=== PATIENT | female | born 1975 | race Asian ===

== ENCOUNTER → 2019-08-16 | Outpatient (CLI) | payer OTHER | END | disposition home or self-care (01) | LOC: MAMMO 13:56 → US 14:30 | DX: Z12.31 Encounter for screening mammogram for malignant neoplasm of breast (principal); N88.8 Other specified noninflammatory disorders of cervix uteri ==

== ENCOUNTER → 2020-03-04 | Outpatient (CLI) | payer OTHER | END | disposition home or self-care (01) | LOC: COVID19 10:12 | PROVIDERS: ATTEND Family Medicine | DX: U07.1 COVID-19 (principal) ==

== ENCOUNTER 2022-04-15 21:14 | Inpatient (IN) | payer OTHER ==
[~2022-04-15] VITALS: Ht 152 cm; Wt 77.1 kg
[2022-04-15 21:38] VITALS: BP 171/115
[2022-04-15] MEDS ORDERED: VITAMIN D310 MC1 PO (21:39)
[2022-04-15 22:27] LABS: BASO # 0.1 10*3/uL (0.0-0.1); BASO % 0.5 % (0.0-1.0); EOS # 0.5 10*3/uL (0.0-0.4); EOS % 5.3 % (1.0-4.0); HEMATOCRIT 45.9 % (37.0-47.0); LYMPH # 2.6 10*3/uL (1.3-4.4); LYMPH % 27.7 % (27.0-41.0); MEAN CELL VOLUME 90.9 fl (81.0-99.0); MEAN CORPUSCULAR HGB 30.5 pg (27.0-31.0); MEAN CORPUSCULAR HGB CONC 33.6 g/dl (33.0-37.0); MEAN PLATELET VOLUME 9.4 fl (9.6-12.3); MONO # 0.5 10*3/uL (0.1-1.0); MONO % 5.4 % (3.0-9.0); NEUT # 5.6 10*3/uL (2.3-7.9); NEUT % 60.8 % (47.0-73.0); PLATELET COUNT AUTOMATED 369 10*3/uL (130-400); RED BLOOD COUNT 5.05 10*6/uL (4.10-5.10); RED CELL DISTRI WIDTH 12.7 % (0-14.5); WHITE BLOOD COUNT 9.2 10*3/uL (4.8-10.8)
[2022-04-15 22:31] VITALS: BP 189/104
[2022-04-15 22:42] LABS: ACT PARTIAL THROMBO TIME 26.2 SECONDS (20.0-32.1)
[2022-04-15 22:47] VITALS: BP 151/82
[2022-04-15 22:50] LABS: ALKALINE PHOSPHATASE 55 U/L (46-116); BUN 10 mg/dl (9-23); CHLORIDE 101 mmol/L (98-107); POTASSIUM 3.2 mmol/L (3.4-5.1); SGPT/ALT 25 U/L (10-49); TOTAL PROTEIN 7.8 gm/dL (6.0-8.0)
[2022-04-15 23:04] VITALS: BP 170/92
[2022-04-15 23:29] VITALS: BP 166/60; BP 166/90
[2022-04-16] VITALS (11 sets, daily range): BP systolic 135–170; BP diastolic 71–110
[2022-04-16 06:37] LABS: ALKALINE PHOSPHATASE 53 U/L (46-116); BUN 9 mg/dl (9-23); CHLORIDE 103 mmol/L (98-107); POTASSIUM 3.9 mmol/L (3.4-5.1); SGPT/ALT 20 U/L (10-49); TOTAL PROTEIN 7.9 gm/dL (6.0-8.0)
[2022-04-17] VITALS: BP 140/76
[2022-04-17] MEDS ORDERED: PREDNISONE5 MG PO (06:07)
[2022-04-17] MEDS ORDERED: CEFUROXIME AXE250 MG PO (06:07)
[2022-04-17] MEDS ORDERED: NORMODYNE,TRAN100 MG PO (06:07)
[2022-04-17 07:10] LABS: BASO % 0.1 % (0.0-1.0); HEMATOCRIT 43.8 % (37.0-47.0); LYMPH # 1.3 10*3/uL (1.3-4.4); LYMPH % 7.9 % (27.0-41.0); MEAN CELL VOLUME 91.6 fl (81.0-99.0); MEAN CORPUSCULAR HGB 30.3 pg (27.0-31.0); MEAN CORPUSCULAR HGB CONC 33.1 g/dl (33.0-37.0); MEAN PLATELET VOLUME 9.5 fl (9.6-12.3); MONO # 0.3 10*3/uL (0.1-1.0); MONO % 1.6 % (3.0-9.0); NEUT # 14.5 10*3/uL (2.3-7.9); NEUT % 89.8 % (47.0-73.0); PLATELET COUNT AUTOMATED 383 10*3/uL (130-400); RED BLOOD COUNT 4.78 10*6/uL (4.10-5.10); WHITE BLOOD COUNT 16.1 10*3/uL (4.8-10.8)
[2022-04-17 08:00] VITALS: BP 135/72; BP 140/92
[2022-04-17 09:53] LABS: BUN 11 mg/dl (9-23); CHLORIDE 104 mmol/L (98-107); POTASSIUM 4.1 mmol/L (3.4-5.1)
[2022-04-17 12:00] VITALS: BP 142/80
== END 2022-04-17 13:25 | disposition home or self-care (01) | DRG 203 ==
LOC: ED 21:14 → EDHOLD 04-16 02:29 → 4E 04-16 02:36
PROVIDERS: Student in an Organized Health Care Education/Training Program; ADMIT Internal Medicine; ATTEND Internal Medicine
DX: J45.21 Mild intermittent asthma with (acute) exacerbation (principal); I16.0 Hypertensive urgency; J06.9 Acute upper respiratory infection, unspecified; E87.6 Hypokalemia; E66.9 Obesity, unspecified; T38.0X5A Adverse effect of glucocorticoids and synthetic analogues, initial encounter; J20.9 Acute bronchitis, unspecified; Z68.33 Body mass index [BMI] 33.0-33.9, adult; R73.9 Hyperglycemia, unspecified; Y92.89 Other specified places as the place of occurrence of the external cause

== ENCOUNTER 2023-07-06 07:12 | Emergency (ER) | payer OTHER ==
[~2023-07-06 07:12] MED LIST: CEFUROXIME AXE250 MG PO; NORMODYNE,TRAN100 MG PO; PREDNISONE5 MG PO; VITAMIN D310 MC1 PO
[2023-07-06] MEDS ORDERED: Albuterol Sulfate 2.5 MG/3 ML VIAL NEB ONE (07:35)
[2023-07-06] MEDS ORDERED: methylPREDNISolone sod succ 125 MG VIAL IV ONE (07:35)
[2023-07-06] MEDS ORDERED: PROAIR DIGIHAL90 MCG INH (07:35)
[2023-07-06] MEDS ORDERED: MAGNESIUM SULFATE 50 ML IV ONE (07:35)
[2023-07-06 07:46] LABS: BASO % 0.4 % (0.0-1.0); EOS # 1.1 10*3/uL (0.0-0.4); EOS % 11.9 % (1.0-4.0); HEMATOCRIT 42.6 % (37.0-47.0); LYMPH # 2.4 10*3/uL (1.3-4.4); LYMPH % 27.1 % (27.0-41.0); MEAN CELL VOLUME 91.6 fl (81.0-99.0); MEAN CORPUSCULAR HGB 30.3 pg (27.0-31.0); MEAN CORPUSCULAR HGB CONC 33.1 g/dl (33.0-37.0); MEAN PLATELET VOLUME 9.1 fl (9.6-12.3); MONO # 0.5 10*3/uL (0.1-1.0); MONO % 5.1 % (3.0-9.0); NEUT # 4.9 10*3/uL (2.3-7.9); NEUT % 55.2 % (47.0-73.0); PLATELET COUNT AUTOMATED 349 10*3/uL (130-400); RED BLOOD COUNT 4.65 10*6/uL (4.10-5.10); RED CELL DISTRI WIDTH 13.1 % (0-14.5); WHITE BLOOD COUNT 8.9 10*3/uL (4.8-10.8)
[2023-07-06 08:06] LABS: ALKALINE PHOSPHATASE 51 U/L (46-116); BUN 6 mg/dl (9-23); CHLORIDE 107 mmol/L (98-107); POTASSIUM 3.3 mmol/L (3.4-5.1); SGPT/ALT 19 U/L (5-49); TOTAL PROTEIN 7.7 gm/dL (6.0-8.0)
[2023-07-06] MEDS ORDERED: VENT7GM INH (08:55)
[2023-07-06] MEDS ORDERED: LEVOFLOXACIN750 M2 PO (08:55)
[2023-07-06] MEDS ORDERED: PREDNISONE20 M1 PO (08:55)
== END 2023-07-06 10:10 | disposition home or self-care (01) ==
LOC: ED 07:12
PROVIDERS: Emergency Medicine
DX: J40 Bronchitis, not specified as acute or chronic (principal); R06.02 Shortness of breath